=== PATIENT | female | born 1955 | race African-American/Black ===

== ENCOUNTER 2021-01-29 12:03 | Emergency (ER) | payer BC ==
[~2021-01-29] VITALS: Ht 170.2 cm; Wt 90.9 kg
[~2021-01-29 12:03] MED LIST: ASPI-630 PO; ATOR40TA59 PO; CANA100T PO; DILT120C99 PO; LISI1TAB20 PO; MELO15TA23 PO; METF-658 PO; PHEN37.53 PO
--- NOTE | 2021-01-29 12:16 | ED.ADGEN ---
Past Medical History Past Medical History: Diabetes-Type II, Hypertension Additional Past Medical Histor: Chronic knee pain Past Surgical History: Cholecystectomy, Smoking Status: Never Smoker Alcohol Use: Occasionally Drug Use: None General Adult EDM: Chief Complaint: CHEST WALL PAIN HPI: HPI: Patient is a 65 year old female coming in by EMS for chest pain. 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 Patient also complained of blurred vision and diaphoresis. Says the pain lasted 3 to 4 minutes and is gone now. Took 324 mg aspirin while at work. Had her blood pressure and blood sugar checked at work which were normal. Denies any tobacco, alcohol, drug use. Has a family history significant for father and sister with cardiac complications in their 70s. Patient is a history of hypertension diabetes. States she is compliant her medications. Denies any cough, fevers patient states pain is resolved at this time but complaining of a left-sided frontal headache Review of Systems: Review of Systems: All other systems within normal limits except for as noted in the HPI Current Medications: Current Medications Medications (Trade) Dose Ordered Sig/Rios Start Time Stop Time Status Last Admin Dose Admin Info (CONTRAST GIVEN -- Rx MONITORING) 1 each PRN DAILY PRN 01/29/21 13:45 01/31/21 13:44 Iohexol (Omnipaque 350 Mg/ml) 90 ml 1X ONCE 01/29/21 13:45 01/29/21 13:46 DC 01/29/21 13:51 90 ML Allergies: Allergies: Allergies Coded Allergies Type Severity Reaction Last Updated Verified No Known Drug Allergies 02/01/16 No Physical Exam: PE: Constitutional: Well developed, well nourished, no acute distress, non-toxic appearance. [] HENT: Normocephalic, atraumatic, bilateral external ears normal, nose normal. [] Eyes: PERRLA, conjunctiva normal, no discharge. [] Neck: No rigidity, supple, no stridor. [] Cardiovascular: Regular rate and rhythm, brisk cap refill, symmetric radial pulses. [] Lungs & Thorax: Non labored symmetric respirations, no tachypnea or respiratory distress [] Abdomen: Soft, nondistended. Skin: Warm, dry, no erythema, no rash. [] Back: Unremarkable Extremities: No deformities, range of motion grossly intact, no lower extremity edema [] Neurologic: Alert and oriented X 3, no focal deficits noted. [] Psychologic: Affect normal, judgement normal, mood normal. [] Current Patient Data: Labs: Laboratory Tests Test 01/29/21 12:30 01/29/21 13:16 01/29/21 15:10 White Blood Count 4.1 x10^3/uL (4.0-11.0) Red Blood Count 5.32 x10^6/uL (3.50-5.40) Hemoglobin 13.8 g/dL (12.0-15.5) Hematocrit 41.9 % (36.0-47.0) Mean Corpuscular Volume 79 fL (79-100) Mean Corpuscular Hemoglobin 26 pg (25-35) Mean Corpuscular Hemoglobin Concent 33 g/dL (31-37) Red Cell Distribution Width 20.1 % (11.5-14.5) H Platelet Count 245 x10^3/uL (140-400) Neutrophils (%) (Auto) 47 % (31-73) Lymphocytes (%) (Auto) 43 % (24-48) Monocytes (%) (Auto) 8 % (0-9) Eosinophils (%) (Auto) 2 % (0-3) Basophils (%) (Auto) 0 % (0-3) Neutrophils # (Auto) 1.9 x10^3/uL (1.8-7.7) Lymphocytes # (Auto) 1.8 x10^3/uL (1.0-4.8) Monocytes # (Auto) 0.3 x10^3/uL (0.0-1.1) Eosinophils # (Auto) 0.1 x10^3/uL (0.0-0.7) Basophils # (Auto) 0.0 x10^3/uL (0.0-0.2) Platelet Estimate Adequate (ADEQUATE) Large Platelets Occ Anisocytosis Mod D-Dimer (Charissa) 0.76 ug/mlFEU (0.00-0.50) H Sodium Level 140 mmol/L (136-145) Potassium Level 3.8 mmol/L (3.5-5.1) Chloride Level 104 mmol/L (98-107) Carbon Dioxide Level 25 mmol/L (21-32) Anion Gap 11 (6-14) Blood Urea Nitrogen 20 mg/dL (7-20) Creatinine 0.9 mg/dL (0.6-1.0) Estimated GFR (Cockcroft-Gault) 76.3 BUN/Creatinine Ratio 22 (6-20) H Glucose Level 156 mg/dL (70-99) H Calcium Level 9.2 mg/dL (8.5-10.1) Total Bilirubin 0.6 mg/dL (0.2-1.0) Aspartate Amino Transferase (AST) 9 U/L (15-37) L Alanine Aminotransferase (ALT) 19 U/L (14-59) Alkaline Phosphatase 75 U/L (46-116) Troponin I Quantitative < 0.017 ng/mL (0.000-0.055) < 0.017 ng/mL (0.000-0.055) UP-Mgq-X-Type Natriuretic Peptide 36 pg/mL (0-124) Total Protein 7.3 g/dL (6.4-8.2) Albumin 4.1 g/dL (3.4-5.0) Albumin/Globulin Ratio 1.3 (1.0-1.7) Urine Collection Type Unknown Urine Color Yellow Urine Clarity Clear Urine pH 5.0 (<5.0-8.0) Urine Specific Cornelia >=1.030 (1.000-1.030) Urine Protein Negative mg/dL (NEG-TRACE) Urine Glucose (UA) >=1000 mg/dL (NEG) Urine Ketones (Stick) Negative mg/dL (NEG) Urine Blood Negative (NEG) Urine Nitrite Negative (NEG) Urine Bilirubin Negative (NEG) Urine Urobilinogen Dipstick 0.2 mg/dL (0.2 mg/dL) Urine Leukocyte Esterase Negative (NEG) Urine RBC 0 /HPF (0-2) Urine WBC 0 /HPF (0-4) Urine Squamous Epithelial Cells Occ /LPF Urine Bacteria Few /HPF (0-FEW) Urine Yeast Present /HPF Laboratory Tests 01/29/21 12:30 Laboratory Tests 01/29/21 12:30 Vital Signs: Vital Signs Date Time Temp Pulse Resp B/P (MAP) Pulse Ox O2 Delivery O2 Flow Rate FiO2 01/29/21 12:23 98.2 80 20 140/84 (102) 95 Room Air 98.2 EKG: EKG: Sinus rhythm, heart information minute, no ST elevation depression. Incomplete right bundle branch block with slight left axis deviation [] Heart Score: C/O Chest Pain: Yes HEART Score for Chest Pain: HEART Score for Chest Pain Response (Comments) Value History Slighlty/Non-Suspicious 0 ECG Nonspecific Repolarizatio 1 Age >45 - < 65 1 Risk Factors 1 or 2 Risk Factors 1 Troponin < Normal Limit 0 Total 3 Risk Factors: Risk Factors: DM, Current or recent (<one month) smoker, HTN, HLP, family history of CAD, obesity. Risk Scores: Score 0 - 3: 2.5% MACE over next 6 weeks - Discharge Home Score 4 - 6: 20.3% MACE over next 6 weeks - Admit for Clinical Observation Score 7 - 10: 72.7% MACE over next 6 weeks - Early Invasive Strategies Radiology/Procedures: Radiology/Procedures: CTA CHEST History: Chest pain Technique: CT of the chest was performed with intravenous contrast. PE protocol. Maximum intensity projection coronal and sagittal reconstructions were performed. Exposure: One or more of the following individualized dose reduction techniques were utilized for this examination: 1. Automated exposure control 2. Adjustment of the mA and/or kV according to patient size 3. Use of iterative reconstruction technique. Comparison: None Findings: Chest: No pulmonary embolism. No aortic aneurysm or dissection. Mild atheromatous plaque within the aorta and branch vessels. Prior artery calcifications. Calcified mediastinal and hilar lymph nodes, likely prior gr anulomatous disease. Right inferior thyroid nodule measures 1.4 cm. 2 mm left upper lobe pleural-based nodule (series 3 image 53). Upper abdomen: Prior cholecystectomy. Bones: No pathologic osseous lesions. Impression: 1. No acute thoracic pathology. 2. Tiny pulmonary nodule. Recommend one-year follow-up if high risk. 3. Right inferior thyroid nodule. [] Course & Med Decision Making: Course & Med Decision Making Pertinent Labs and Imaging studies reviewed. (See chart for details) [] Dragon Disclaimer: Dragon Disclaimer: This electronic medical record was generated, in whole or in part, using a voice recognition dictation system. Departure Departure Impression: Primary Impression: Chest pain Disposition: 01 DC HOME SELF CARE/HOMELESS Condition: STABLE Referrals: CHRISTINE PATE DO (PCP) Patient Instructions: Chest Pain (Nonspecific) GEORGE PATEL MD Jan 29, 2021 12:16
[2021-01-29 12:45] LABS: BASO % 0 % (0-3); EOS # 0.1 x10^3/uL (0.0-0.7); EOS % 2 % (0-3); HEMATOCRIT 41.9 % (36.0-47.0); HEMOGLOBIN 13.8 g/dL (12.0-15.5); LYMPH # 1.8 x10^3/uL (1.0-4.8); LYMPH % 43 % (24-48); MEAN CORPUSCULAR HEMOGLOBIN 26 pg (25-35); MEAN CORPUSCULAR HGB CONC 33 g/dL (31-37); MEAN CORPUSCULAR VOLUME 79 fL (79-100); MONO # 0.3 x10^3/uL (0.0-1.1); MONO % 8 % (0-9); NEUT # 1.9 x10^3/uL (1.8-7.7); NEUT % 47 % (31-73); PLATELET COUNT 245 x10^3/uL (140-400); RED BLOOD COUNT 5.32 x10^6/uL (3.50-5.40); RED CELL DISTRIBUTION WIDTH 20.1 % (11.5-14.5); WHITE BLOOD COUNT 4.1 x10^3/uL (4.0-11.0)
[2021-01-29 12:55] LABS: CALCIUM 9.2 mg/dL (8.5-10.1); CREATININE 0.9 mg/dL (0.6-1.0); GFR 76.3; POTASSIUM 3.8 mmol/L (3.5-5.1)
[2021-01-29 13:00] LABS: ALBUMIN 4.1 g/dL (3.4-5.0); ALBUMIN/GLOBULIN RATIO 1.3 (1.0-1.7); TOTAL BILIRUBIN 0.6 mg/dL (0.2-1.0); TOTAL PROTEIN 7.3 g/dL (6.4-8.2)
[2021-01-29 13:11] LABS: PLT ESTIMATE ADEQUATE (ADEQUATE)
[2021-01-29 13:12] LABS: ANISOCYTOSIS MOD
--- NOTE | 2021-01-29 13:13 | RAD ---
PA and lateral chest. HISTORY: Chest pain, mid chest pain PA and lateral views were taken of the chest. Lungs are free of infiltrates. Heart is normal in size. There is no pleural effusion. There is mild scoliosis. IMPRESSION: 1. No acute chest disease. Electronically signed by: Ector Shabazz MD (01/29/2021 1:11 PM) [id number]
[2021-01-29] MEDS ORDERED: CONTRAST GIVEN. MC PRN (13:45)
[2021-01-29] MEDS ORDERED: IOHEXOL 350 MG/ML 100 ML VIAL. IV ONE (13:45)
[2021-01-29 13:54] LABS: BILIRUBIN,URINE NEGATIVE (NEG); CLARITY,URINE CLEAR; COLOR,URINE YELLOW; NITRITE,URINE NEGATIVE (NEG); PROTEIN,URINE NEGATIVE (NEG-TRACE); UROBILINOGEN,URINE 0.2 mg/dL (0.2 mg/dL)
[2021-01-29 14:06] LABS: BACTERIA,URINE FEW /HPF (0-FEW); RBC,URINE 0 /HPF (0-2); WBC,URINE 0 /HPF (0-4)
[2021-01-29 14:07] LABS: YEAST,URINE PRESENT /HPF
--- NOTE | 2021-01-29 15:11 | RAD ---
CTA CHEST History: Chest pain Technique: CT of the chest was performed with intravenous contrast. PE protocol. Maximum intensity pr ojection coronal and sagittal reconstructions were performed. Exposure: One or more of the following individualized dose reduction techniques were utilized for thi s examination: 1. Automated exposure control 2. Adjustment of the mA and/or kV according to patient size 3. Use of iterative reconstruction technique. Comparison: None Findings: Chest: No pulmonary embolism. No aortic aneurysm or dissection. Mild atheromatous plaque within the a imra and branch vessels. Prior artery calcifications. Calcified mediastinal and hilar lymph nodes, li lilibeth prior granulomatous disease. Right inferior thyroid nodule measures 1.4 cm. 2 mm left upper lobe pleural-based nodule (series 3 image 53). Upper abdomen: Prior cholecystectomy. Bones: No pathologic osseous lesions. Impression: 1. No acute thoracic pathology. 2. Tiny pulmonary nodule. Recommend one-year follow-up if high risk. 3. Right inferior thyroid nodule. Electronically signed by: John Glass DO (01/29/2021 3:08 PM) [id number]
[2021-01-29 16:00] VITALS: BP 140/68
== END 2021-01-29 16:00 | disposition home or self-care (01) ==
LOC: ER 12:03
DX: R07.89 Other chest pain (principal); H53.8 Other visual disturbances; R61 Generalized hyperhidrosis; E11.9 Type 2 diabetes mellitus without complications; I10 Essential (primary) hypertension; G89.29 Other chronic pain
CPT/HCPCS: 36415; 71046; 71275; 80053; 81001; 83880; 84484; 85025; 85379; 99285; Q9967

== ENCOUNTER 2022-01-29 12:00 | Emergency (ER) | payer BC ==
[~2022-01-29] VITALS: Ht 175.3 cm; Wt 89.0 kg
[~2022-01-29 12:00] MED LIST changes: -LISI1TAB20 PO; +LISI1TAB39 PO
--- NOTE | 2022-01-29 12:22 | PHYS DOC ---
Past Medical History Past Medical History: Diabetes-Type II, Hypertension Additional Past Medical Histor: Chronic knee pain Past Surgical History: Cholecystectomy, Smoking Status: Never Smoker Alcohol Use: Occasionally Drug Use: None General Adult HPI: HPI: Patient is a 66 year old female who presents with works at [employer] and was brought here by EMS. She states this morning she had been constipated so she drank cranberry and prune juice. She states that she had not ate anything and she came to work and was passing medications once only her sto mach started cramping really bad she went to the bathroom began having diarrhea and some hard stool and then became dizzy, lightheaded and nauseated and diaphoretic. She states she did not lose consciousness. She states that she does feel better now and at this time denies abdominal pain, dizziness, lightheadedness, nausea. She states she still feels like she needs to have another bowel movement but she is too scared to because of what happened. She denies chest pain, syncope, headache, fever, cough, shortness of breath, vomiting, focal weakness, numbness or tingling, vision change. Patient does have a history of diabetes, , cholecystectomy and hypertension. She denies taking any of her medications this morning. Review of Systems: Review of Systems: Constitutional: Denies fever or chills. [] Eyes: Denies change in visual acuity. [] HENT: Denies nasal congestion or sore throat. [] Respiratory: Denies cough or shortness of breath. [] Cardiovascular: Denies chest pain or edema. [] GI: + abdominal pain, +nausea, denies vomiting, bloody stools or +diarrhea. [] : Denies dysuria. [] Musculoskeletal: Denies back pain or joint pain. [] Integument: Denies rash. + Diaphoretic [] Neurologic: Denies headache, focal weakness or sensory changes. + Near syncope [] Endocrine: Denies polyuria or polydipsia. [] Lymphatic: Denies swollen glands. [] Psychiatric: Denies depression or anxiety. [] Heart Score: C/O Chest Pain: No HEART Score for Chest Pain: HEART Score for Chest Pain Response (Comments) Value History Slighlty/Non-Suspicious 0 ECG Nonspecific Repolarizatio 1 Age >45 - < 65 1 Risk Factors 1 or 2 Risk Factors 1 Troponin < Normal Limit 0 Total 3 Risk Factors: Risk Factors: DM, Current or recent (<one month) smoker, HTN, HLP, family history of CAD, obesity. Risk Scores: Score 0 - 3: 2.5% MACE over next 6 weeks - Discharge Home Score 4 - 6: 20.3% MACE over next 6 weeks - Admit for Clinical Observation Score 7 - 10: 72.7% MACE over next 6 weeks - Early Invasive Strategies Allergies: Allergies: Allergies Coded Allergies Type Severity Reaction Last Updated Verified No Known Drug Allergies 02/01/16 No Physical Exam: PE: Constitutional: Well developed, well nourished, no acute distress, non-toxic appearance. [] HENT: Normocephalic, atraumatic, bilateral external ears normal, oropharynx mo ist, no oral exudates, nose normal. [] Eyes: PERRLA, EOMI, conjunctiva normal, no discharge. [] Neck: Normal range of motion, no tenderness, supple, no stridor. [] Cardiovascular:Heart rate regular rhythm, no murmur [] Lungs & Thorax: Bilateral breath sounds clear to auscultation [] Abdomen: Bowel sounds normal, soft, no tenderness, no masses, no pulsatile masses. [] Skin: Warm, dry, no erythema, no rash. [] Back: No tenderness, no CVA tenderness. [] Extremities: No tenderness, no cyanosis, no clubbing, ROM intact, no edema. [] Neurologic: Alert and oriented X 3, normal motor function, normal sensory function, no focal deficits noted. [] Psychologic: Affect normal, judgement normal, mood normal. [] Normal physical exam EKG: EK and read by Dr. Bazan is a sinus rhythm with a right bundle branch block but no STEMI Radiology/Procedures: Radiology/Procedures: [] Impression: [facility] [address] [place], [place] [id number] IMAGING REPORT Signed PATIENT: JERED LONG ACCOUNT: [id number] : 1955 LOCATION: ER AGE: 66 SEX: F EXAM STATUS: PRE ER ORD. PHYSICIAN: JULES AGUIRRE APRN REASON: diarrhea, abd pain PROCEDURE: ACUTE ABDOMEN SERIES Acute Abdominal Series: Technique: PA view of the chest and supine and upright views of the abdomen were obtained. History: Pain. Comparison: None. Findings: The lungs and pleural margins are clear. There is a paucity of bowel gas. There is no free air. Impression: No acute findings. Electronically signed by: Christine Cole III, MD (01/29/2022 12:36 PM) [facility] DICTATED and SIGNED BY: CHRISTINE COLE III, MD DATE: 01/29/22 1234 [facility] [address] [place] [address] IMAGING REPORT Signed PATIENT: JERED LONG ACCOUNT: [id number] : 1955 LOCATION: ER AGE: 66 SEX: F EXAM STATUS: PRE ER ORD. PHYSICIAN: JULES AGUIRRE APRN REASON: near syncope, dizzy PROCEDURE: CT HEAD WO CONTRAST STUDY: CT head without contrast INDICATION: Near syncope. Dizziness. COMPARISON: 02/01/2016 TECHNIQUE: Axial CT imaging through the head without the use of intravenous contrast. Sagittal and coronal reformats were obtained. One or more of the following individualized dose reduction techniques were utilized for this examination: 1. Automated exposure control 2. Adjustment of the mA and/or kV according to patient size 3. Use of iterative reconstruction technique. FINDINGS: No acute intracranial hemorrhage. No mass effect, midline shift or hydrocephalus. Burks-white matter differentiation is maintained. Intact calvarium. No layering fluid seen within the visualized paranasal sinuses. Unremarkable mastoid air cells and middle ears. IMPRESSION: No acute intracranial abnormality by CT. Electronically signed by: ASHISH BEST MD (01/29/2022 1:10 PM) [facility] DICTATED and SIGNED BY: ASHISH BEST MD DATE: 01/29/22 130 Course & Med Decision Making: Course & Med Decision Making Pertinent Labs and Imaging studies reviewed. (See chart for details) See HPI. Alert and oriented x4. Moving all extremities and is unable to dress herself. Answers all questions appropriately. Follows all commands. Speaks in full clear sentences. Abdomen soft and nontender. Afebrile. Orthostatics are normal. CT head shows no acute findings. Acute Abdominal series shows no acute findings. Blood work unremarkable. Patient is still feeling much better. Patient denies any symptoms at this time. Urinalysis shows no dehydration or infection. [] Dragon Disclaimer: Dragon Disclaimer: This electronic medical record was generated, in whole or in part, using a voice recognition dictation system. NIHSS Stroke Scale NIH Stroke Scale: NIH Stroke Scale Response (Comments) Value Level of Consciousness: 0 Alert/Responsive 0 LOC Questions: 0 Answers both correctly 0 LOC Commands: 0 Performs both tasks 0 Best Gaze: 0 Normal 0 Visual: 0 No visual loss 0 Facial Palsy: 0 Normal, symmetrical 0 Motor - Left Arm 0 No drift 0 Motor - Right Arm 0 No drift 0 Motor - Left Leg 0 No drift 0 Motor: Right Leg 0 No drift 0 Limb Ataxia: 0 Absent 0 Sensory: 0 No loss 0 Best Language: 0 Normal 0 Dysathria: 0 Normal 0 Extinction and Inattention: 0 Normal 0 Total 0 Departure Departure Impression: Primary Impression: Vasovagal near syncope Disposition: 01 HOME / SELF CARE / HOMELESS Condition: STABLE Referrals: CHRISTINE PATE DO (PCP) Patient Instructions: Vagal Nerve Stimulation Additional Instructions: Follow-up with primary care provider if needed. Make sure you drink plenty of fluids to stay hydrated. Give if any symptoms come back or worsen you can return the emergency room. JULES AGUIRRE APRN Jan 29, 2022 12:22
[2022-01-29] MEDS ORDERED: IV NORMAL SALINE 1000ML BAG 1,000 ML IV SCH (12:30)
--- NOTE | 2022-01-29 12:39 | RAD ---
Acute Abdominal Series: Technique: PA view of the chest and supine and upright views of the abdomen were obtained. History: Pain. Comparison: None. Findings: The lungs and pleural margins are clear. There is a paucity of bowel gas. There is no free air. Impression: No acute findings. Electronically signed by: Peter Meyer III, MD (01/29/2022 12:36 PM) [facility]
--- NOTE | 2022-01-29 13:12 | RAD ---
STUDY: CT head without contrast INDICATION: Near syncope. Dizziness. COMPARISON: 02/01/2016 TECHNIQUE: Axial CT imaging through the head without the use of intravenous contrast. Sagittal and co tex reformats were obtained. One or more of the following individualized dose reduction techniques were utilized for this examinat ion: 1. Automated exposure control 2. Adjustment of the mA and/or kV according to patient size 3. Use of iterative reconstruction technique. FINDINGS: No acute intracranial hemorrhage. No mass effect, midline shift or hydrocephalus. Burks-white matter d ifferentiation is maintained. Intact calvarium. No layering fluid seen within the visualized paranasal sinuses. Unremarkable mastoi d air cells and middle ears. IMPRESSION: No acute intracranial abnormality by CT. Electronically signed by: ASHISH BEST MD (01/29/2022 1:10 PM) [facility]
[2022-01-29 13:32] LABS: INFLUENZA A PATIENT NEGATIVE (NEGATIVE); INFLUENZA B PATIENT NEGATIVE (NEGATIVE)
[2022-01-29 14:05] LABS: BASO % 0 % (0-3); EOS % 1 % (0-3); HEMATOCRIT 40.4 % (36.0-47.0); HEMOGLOBIN 12.9 g/dL (12.0-15.5); LYMPH # 1.2 x10^3/uL (1.0-4.8); LYMPH % 16 % (24-48); MEAN CORPUSCULAR HEMOGLOBIN 26 pg (25-35); MEAN CORPUSCULAR HGB CONC 32 g/dL (31-37); MEAN CORPUSCULAR VOLUME 80 fL (79-100); MONO # 0.4 x10^3/uL (0.0-1.1); MONO % 5 % (0-9); NEUT # 5.7 x10^3/uL (1.8-7.7); NEUT % 78 % (31-73); PLATELET COUNT 251 x10^3/uL (140-400); RED BLOOD COUNT 5.07 x10^6/uL (3.50-5.40); RED CELL DISTRIBUTION WIDTH 21.1 % (11.5-14.5); WHITE BLOOD COUNT 7.3 x10^3/uL (4.0-11.0)
[2022-01-29 14:18] LABS: CALCIUM 8.5 mg/dL (8.5-10.1); CREATININE 1.2 mg/dL (0.6-1.0); GFR 54.6; POTASSIUM 3.6 mmol/L (3.5-5.1)
[2022-01-29 14:24] LABS: ALBUMIN 3.9 g/dL (3.4-5.0); ALBUMIN/GLOBULIN RATIO 1.4 (1.0-1.7); TOTAL BILIRUBIN 0.6 mg/dL (0.2-1.0); TOTAL PROTEIN 6.6 g/dL (6.4-8.2)
[2022-01-29 14:53] LABS: ANISOCYTOSIS MOD; PLT ESTIMATE ADEQUATE (ADEQUATE)
[2022-01-29 14:54] LABS: POIKILOCYTOSIS SLIGHT
[2022-01-29 15:14] LABS: BACTERIA,URINE 0 /HPF (0-FEW); RBC,URINE 0 /HPF (0-2); WBC,URINE OCC /HPF (0-4)
[2022-01-29 15:56] VITALS: BP 122/63
--- NOTE | 2022-01-29 19:02 | EKG ---
[facility] [address] [place] [address] Test Date: 2022-01-29 Test Time: 12:12:03 Pat Name: JERED LONG Department: Room: Gender: F Health Education Coordinator: : 1955 Requested By: JULES AGUIRRE Order Number: [id number] Reading MD: Rosendo Aguilar Measurements Intervals [place] Rate: 57 P: 34 [place]: 162 QRS: -47 QRSD: 128 T: 27 QT: 462 QTc: 453 Interpretive Statements SINUS RHYTHM ABNORMAL LEFT AXIS DEVIATION LEFT ANTERIOR FASCICULAR BLOCK RIGHT BUNDLE BRANCH BLOCK BIFASCICULAR BLOCK Electronically Signed On 01-29-2022 21:15:23 CDT by Rosendo Aguilar
== END 2022-01-29 16:03 | disposition home or self-care (01) ==
LOC: ER 12:00
DX: R55 Syncope and collapse (principal); R42 Dizziness and giddiness; R19.7 Diarrhea, unspecified; E11.9 Type 2 diabetes mellitus without complications; I10 Essential (primary) hypertension; G89.29 Other chronic pain
CPT/HCPCS: 36415; 70450; 74022; 80053; 81001; 82962; 84484; 85025; 87428; 93005; 96360; 96361; 99285; J7030